=== PATIENT | male | born 1975 | race American Indian/Alaskan Native ===

== ENCOUNTER 2018-10-09 12:52 | Outpatient (CLI) | payer MEDICAID ==
[2018-10-09] MEDS ORDERED: XYLOCAINE TOPICAL 4% TP ONE (13:01)
== END 2018-10-09 12:53 | disposition home or self-care (01) ==
LOC: WOUND 12:52
PROVIDERS: ATTEND Surgery
DX: S21.101A Unspecified open wound of right front wall of thorax without penetration into thoracic cavity, initial encounter (principal); D21.6 Benign neoplasm of connective and other soft tissue of trunk, unspecified; I10 Essential (primary) hypertension; F90.9 Attention-deficit hyperactivity disorder, unspecified type; X58.XXXA Exposure to other specified factors, initial encounter; Y93.89 Activity, other specified; Y92.89 Other specified places as the place of occurrence of the external cause; Y99.8 Other external cause status
CPT/HCPCS: 99205; 99215; G0463

== ENCOUNTER 2018-10-16 12:42 | Outpatient (CLI) | payer MEDICAID | END 2018-10-16 12:43 | disposition home or self-care (01) | LOC: LABHHL 12:42 | PROVIDERS: ATTEND Surgery | DX: L91.0 Hypertrophic scar (principal); D23.71 Other benign neoplasm of skin of right lower limb, including hip | CPT/HCPCS: 88305 ==

== ENCOUNTER 2018-11-19 09:24 | Outpatient (CLI) | payer MEDICAID | END 2018-11-19 09:25 | disposition home or self-care (01) | LOC: LABHHL 09:24 | PROVIDERS: ATTEND Surgery | DX: D23.71 Other benign neoplasm of skin of right lower limb, including hip (principal) | CPT/HCPCS: 88305 ==